=== PATIENT | female | born 1985 | race Caucasian/White ===

== ENCOUNTER → 2016-07-01 | Outpatient (REF) | LOC: WSOH 12:28 → WSPT 14:00 | DX: Z02.1 Encounter for pre-employment examination (principal) ==

== ENCOUNTER → 2016-07-15 | Outpatient (REF) | LOC: WSOH 12:40 | DX: Z02.89 Encounter for other administrative examinations (principal) ==

== ENCOUNTER → 2016-09-15 | Outpatient (REF) | LOC: WSOH 15:00 | DX: Z23 Encounter for immunization (principal) ==

== ENCOUNTER → 2016-12-17 | Outpatient (REF) | LOC: WSOH 15:16 | DX: Z23 Encounter for immunization (principal) ==

== ENCOUNTER → 2017-02-22 | Outpatient (REF) | LOC: WSOH 09:15 | DX: Z02.89 Encounter for other administrative examinations (principal) ==